=== PATIENT | male | born 1980 | race American Indian/Alaskan Native ===

== ENCOUNTER 2019-08-29 03:24 | Emergency (ER) | payer OTHER ==
--- NOTE | 2019-08-29 04:23 | Emergency Department Report ---
ED General Adult HPI - General Chief complaint: Sore Throat Stated complaint: STREP THROAT/PAIN Source: patient Mode of arrival: Ambulatory Limitations: No Limitations - History of Present Illness Initial comments: Patient is a 39-year-old -[place] male with no past medical history presents to the ED with complaint of acute onset persistent severe sore throat, dysphagia, for the last 2 days. Patient states that no one else at home is had similar symptoms. Patient states that in the last 12 hours he noticed multiple yellowish exudates on his tonsils with worsening dysphagia and pain. Patient denies fever, chills, nausea, vomiting, diarrhea, headache, dizziness, syncope, chest pain, shortness of breath, abdominal pain, nasal and sinus congestion or cough. MD Complaint: Sore throat, dysphagia -: Sudden, days(s) (2) Location: mouth Radiation: non-radiation Severity scale (0 -10): 7 Quality: aching, sharp Consistency: constant Improves with: none Worsens with: eating Associated Symptoms: denies other symptoms. denies: confusion, chest pain, cough, diaphoresis, fever/chills, headaches, loss of appetite, malaise, nausea/vomiting, rash, seizure, shortness of breath, syncope, weakness, other Treatments Prior to Arrival: none - Related Data Previous Rx's Medication Instructions Recorded Last Taken Type Ibuprofen [Motrin] 800 mg PO Q8HR PRN #24 tablet 08/29/19 Unknown Rx Lidocaine Viscous 2% 10 ml PO Q6H PRN #120 ml 08/29/19 Unknown Rx methylPREDNISolone [Medrol 4MG 4 mg PO DAILY #21 tab.ds.pk 08/29/19 Unknown Rx DOSEPAK (21 tabs)] ED Review of Systems ROS: Stated complaint: STREP THROAT/PAIN Other details as noted in HPI Constitutional: denies: chills, fever Eyes: denies: eye pain, eye discharge, vision change ENT: throat pain, other (Dysphagia). denies: ear pain Respiratory: denies: cough, shortness of breath, wheezing Cardiovascular: denies: chest pain, palpitations Endocrine: no symptoms reported Gastrointestinal: denies: abdominal pain, nausea, diarrhea Genitourinary: denies: urgency, dysuria Musculoskeletal: denies: back pain, joint swelling, arthralgia Skin: denies: rash, lesions Neurological: denies: headache, weakness, paresthesias Psychiatric: denies: anxiety, depression Hematological/Lymphatic: denies: easy bleeding, easy bruising ED Past Medical Hx - Past Medical History Previous Medical History?: No - Surgical History Past Surgical History?: No - Social History Smoking Status: Never Smoker Substance Use Type: Alcohol, Marijuana - Medications Home Medications: Home Medications Medication Instructions Recorded Confirmed Last Taken Type Ibuprofen [Motrin] 800 mg PO Q8HR PRN #24 tablet 08/29/19 Unknown Rx Lidocaine Viscous 2% 10 ml PO Q6H PRN #120 ml 08/29/19 Unknown Rx methylPREDNISolone [Medrol 4MG 4 mg PO DAILY #21 tab.ds.pk 08/29/19 Unknown Rx DOSEPAK (21 tabs)] ED Physical Exam - General Limitations: No Limitations General appearance: alert, in no apparent distress - Head Head exam: Present: atraumatic, normocephalic, normal inspection - Eye Eye exam: Present: normal appearance, PERRL Pupils: Present: normal accommodation - ENT ENT exam: Present: mucous membranes moist, TM's normal bilaterally, normal external ear exam, other (Erythematous oropharynx with mild tonsillar thick white exudates with mild swelling, uvula midline; no trismus; no sign of peritonsillar abscess) - Neck Neck exam: Present: normal inspection, full ROM, lymphadenopathy. Absent: tenderness, meningismus - Respiratory Respiratory exam: Present: normal lung sounds bilaterally. Absent: respiratory distress, wheezes, chest wall tenderness, decreased breath sounds - Cardiovascular Cardiovascular Exam: Present: regular rate, normal rhythm, normal heart sounds. Absent: systolic murmur, diastolic murmur, rubs, gallop - GI/Abdominal GI/Abdominal exam: Present: soft, normal bowel sounds. Absent: tenderness, guarding, rebound, hyperactive bowel sounds, hypoactive bowel sounds - Extremities Exam Extremities exam: Present: normal inspection, full ROM, normal capillary refill. Absent: tenderness, pedal edema, joint swelling, calf tenderness - Back Exam Back exam: Present: normal inspection, full ROM. Absent: tenderness, CVA tenderness (R), CVA tenderness (L), muscle spasm, paraspinal tenderness, vertebral tenderness - Neurological Exam Neurological exam: Present: alert, oriented X3, CN II-XII intact, normal gait, reflexes normal - Psychiatric Psychiatric exam: Present: normal affect, normal mood - Skin Skin exam: Present: warm, dry, intact, normal color. Absent: rash ED Course Vital Signs 08/29/19 03:30 Temperature 97.9 F Pulse Rate 82 Respiratory 20 Rate Blood Pressure 145/93 O2 Sat by Pulse 98 Oximetry ED Medical Decision Making - Medical Decision Making This is a 39-year-old -[place] male with no past medical history presents to the ED with complaint of acute onset persistent severe sore throat, dysphagia, for the last 2 days. Patient states that no one else at home is had similar symptoms. Patient states that in the last 12 hours he noticed multiple yellowish exudates on his tonsils with worsening dysphagia and pain. In the ED, patient is alert and oriented x3 and is not in distress. Patient was treated for pain in the ED and also received Bicillin LA 1,200,000 units intramuscular injection in the ED for suspected streptococcal pharyngitis. Patient was discharged home on medications for pain and was advised to follow-up with his primary care physician in 7 to 10 days for reevaluation. Patient was also advised to return to the ED immediately if symptoms get worse. - Differential Diagnosis strep pharyngitis; Tonsillitis; Peritonsillar abscess; viral pharyngitis Critical care attestation.: If time is entered above; I have spent that time in minutes in the direct care of this critically ill patient, excluding procedure time. ED Disposition Clinical Impression: Acute streptococcal pharyngitis, Acute bacterial tonsillitis Disposition: TO HOME OR SELFCARE Is pt being admited?: No Does the pt Need Aspirin: No Condition: Stable Instructions: Strep Throat (ED), Tonsillitis (ED) Additional Instructions: Take medication with food, drink plenty of fluids and follow-up with your primary care physician in 7 to 10 days for reevaluation. Return to the ED immediately if symptoms get worse. Prescriptions: Lidocaine Viscous 2% 10 ml PO Q6H PRN #120 ml PRN Reason: Pain , Severe (7-10) methylPREDNISolone [Medrol 4MG DOSEPAK (21 tabs)] 4 mg PO DAILY #21 tab.ds.pk Ibuprofen [Motrin] 800 mg PO Q8HR PRN #24 tablet PRN Reason: Pain , Severe (7-10) Referrals: PRIMARY CARE, [Primary Care Provider] - 3-5 Days [facility] [Provider Group] - 3-5 Days [facility] [Outside] - 3-5 Days Time of Disposition: 04:24 Print Language: [place]
[2019-08-29] MEDS ORDERED: dexAMETHasone 20 MG/5 ML VIAL IM ONE (04:26)
[2019-08-29] MEDS ORDERED: LIDOCAINE VISCOUS 2% 15 ML ORAL LIQD PO ONE (04:26)
[2019-08-29] MEDS ORDERED: PENICILLIN G BENZATHINE 1.2 MILLION UNIT/2 ML INJ IM ONE (04:26)
[2019-08-29] MEDS ORDERED: KETOROLAC 30 MG/1 ML INJ IM ONE (04:26)
[2019-08-29 04:39] VITALS: BP 112/75
== END 2019-08-29 05:14 | disposition home or self-care (01) ==
LOC: ED 03:24
DX: J02.0 Streptococcal pharyngitis (principal); J03.80 Acute tonsillitis due to other specified organisms; F12.10 Cannabis abuse, uncomplicated; B96.89 Other specified bacterial agents as the cause of diseases classified elsewhere
CPT/HCPCS: 96372; 99282; J0561; J1100; J1885